=== PATIENT | male | born 1950 | race Caucasian/White ===

== ENCOUNTER 2019-04-10 20:50 | Observation (INO) | payer OTHER, SELFPAY ==
[2019-04-10] VITALS (20 sets, daily range): BP systolic 161–175; BP diastolic 88–118; PULSE 69–79; RESP 10–25; TEMP 36.8–37.3; O2SAT 96–99
--- NOTE | 2019-04-10 21:18 | DI.RAD_ITS ---
SYMPTOMS/DIAGNOSIS: PALPITATIONS CHEST: Frontal and lateral views. No priors. The heart size and pulmonary vasculature are within normal limits. There is prominent soft tissue in the right paratracheal region. This may be vascular but a superior mediastinal mass can not excluded. The lungs are clear. No effusions or pneumothoraces are identified. Degenerative changes are seen in the spine. IMPRESSION: 1. No acute pulmonary process. 2. Prominent soft tissue in the right paratracheal region. A CT scan of the chest may be considered for further evaluation.
--- NOTE | 2019-04-10 21:22 | ED.GENADUL_ITS ---
Discharge Plan Disposition Patient Disposition: [facility] INPATIENT Condition: Stable Discharge Details Chief Complaint: Chest Pain Clinical Impression: Heart palpitations Admit Date/Time: 04/10/19 22:30 Admit Provider: Jay Montana Attending Provider: Jay Montana Primary Care Provider: Poncho Porter ED Provider: Mac Blount Medical Decision Making 68-year-old male with a history of A. fib and flutter, status post ablation, with a history of coronary artery disease status post percutaneous stenting x1. Medications include Eliquis and Tikosyn. Today, the patient flew from his home in [place] to his home in [place]. He reports after getting on the plane at 10 AM he felt anxious as he does not like flying and felt fluttering in his chest. He took his medications while on the plane. Since that time he is felt a fluttering and discomfort similar 20s had previous episodes of atrial dysrhythmia. He arrives afebrile, well-appearing, mildly anxious and hypertensive. Chest x-ray without any acute findings. His laboratories are reassuring and age-adjusted d-dimer is negative. He has demonstrated single PVCs on the monitor. With his history of atrial dysrhythmia he may have had a mild dysrhythmia due to anxiety secondary to flying, that was extinguished with Tikosyn. I do feel he merits serial cardiac troponins with telemetry monitoring overnight. Lab Data Lab results reviewed: Yes I reviewed the patient's lab results. Laboratory Results - last 24 hr 04/10/19 04/10/19 04/10/19 21:05 21:05 21:15 WBC 8.73 RBC 4.49 L Hgb 15.3 Hct 45.6 MCV 101.6 H MCH 34.1 H MCHC 33.6 RDW 13.8 Plt Count 191 MPV 10.8 Immature Gran % 0.3 Neutrophils % 71.4 Lymphocytes % 14.8 Monocytes % 12.8 Eosinophils % 0.2 Basophils % 0.5 Absolute Neutrophils 6.23 Absolute Lymphocytes 1.29 Absolute Monocytes 1.12 H Absolute Eosinophils 0.02 Absolute Basophils 0.04 PT 10.3 INR 1.0 APTT 24.7 D-Dimer 609 H Sodium 141 Potassium 4.4 Chloride 103 Carbon Dioxide 26.7 Anion Gap 11.3 H BUN 23 H Creatinine 0.99 Estimated GFR/1.73 m2 >= 60.00 Glucose 126 H Calcium 9.7 Magnesium 1.8 Total Bilirubin 0.8 AST 84 H ALT 100 H Alkaline Phosphatase 89 Troponin I 0.04 NT-Pro-B Natriuret Pep Total Protein 8.4 H Albumin 4.0 TSH 04/10/19 04/10/19 04/10/19 21:15 21:15 21:18 WBC RBC Hgb Hct MCV MCH MCHC RDW Plt Count MPV Immature Gran % Neutrophils % Lymphocytes % Monocytes % Eosinophils % Basophils % Absolute Neutrophils Absolute Lymphocytes Absolute Monocytes Absolute Eosinophils Absolute Basophils PT INR APTT D-Dimer Sodium Cancelled Potassium Cancelled Chloride Cancelled Carbon Dioxide Cancelled Anion Gap Cancelled BUN Cancelled Creatinine Cancelled Estimated GFR/1.73 m2 Cancelled Glucose Cancelled Calcium Cancelled Magnesium Total Bilirubin Cancelled AST Cancelled ALT Cancelled Alkaline Phosphatase Cancelled Troponin I Cancelled NT-Pro-B Natriuret Pep 372 H Total Protein Cancelled Albumin Cancelled TSH 2.70 ECG Data Attestation: I personally reviewed and interpreted this ECG (s) as follows: Interpretation: Normal sinus rhythm with a rate of 74, the QRS is narrow, there is no ST segment elevation present. Left atrial enlargement HPI General Mode of arrival: ambulatory . Date/Time Provider Initiated Documentation: 04/10/19 20:57 . Limitations to Documentation: no limitations . Information obtained by: patient . History of Present Illness 68 year old M presents to the emergency department with the chief complaint of Palpitations, fluttering in chest, described as moderate and similar to prior episodes, Quality is described as constant, and is localized to the chest. Patient reports no radiation. Patient started experiencing this hour(s) and it has been constant. No relieving factors improve symptom(s), No exacerbating factors reported . Patient notes loss of appetite and other (Anxious). Patient did receive the following treatments prior to arrival, none Related Data Home Medications Medication Instructions Recorded Confirmed acetaminophen [Tylenol] PRN 04/10/19 apixaban [Eliquis] 5 mg PO BID 04/10/19 04/10/19 atorvastatin 40 mg PO QPM 04/10/19 04/10/19 dofetilide 500 mcg PO Q12H 04/10/19 04/10/19 glucosamine sulfate [Glucosamine] 3 PO DAILY 04/10/19 nitroglycerin 0.4 mg SUBLINGUAL Q5-15M PRN 04/10/19 04/10/19 Allergies Allergy/AdvReac Type Severity Reaction Status Date / Time No Known Allergies Allergy Unverified 04/10/19 21:19 General Stated Complaint: Chest Pain HU: 3 Review of Systems Review of Systems Reports history of A. fib and flutter status post ablation. Status post percutaneous stenting of coronary lesion. Lives in [facility]. Has a home in [facility]. No recent illness. Reports weight gain over the years time. 8 systems reviewed reviewed and otherwise negative [facility] Medical History Arthritis (Acute) BiPAP (biphasic positive airway pressure) dependence (Acute) Carpal tunnel syndrome on both sides (Acute) Sleep apnea (Acute) Coronary artery disease (Chronic) Surgical History Total knee replacement status (Acute) History of coronary artery stent placement (Chronic) Social History Smoking/Tobacco Use Status: Never Alcohol Intake: current Alcohol Intake frequency: a few times a week Substance use type: does not use Do you feel safe at home: Yes Do you feel safe in your relationship?: Yes Exam Narrative Exam Narrative: GEN: awake, alert, oriented 3. Pleasant, well groomed, interactive. HEAD: Normocephalic, atraumatic ENT: Mucous membranes moist, oropharynx unremarkable, External ear exam unrema rkable EYES: PERRL, EOMI NECK: Full ROM, no SILVINA, no menigismus CHEST/RESP: Nontender, clear to auscultation bilateral, no wheeze/rhonchi/rales CARDIOVASCULAR: RRR, no murmur, rub alcon. 2+ Rad pulse bilateral ABDOMEN: Soft, nontender, no mass. +Bowel sounds EXT: Full ROM, no edema, no rash Neuro: Grossly normal neurologic exam, conversant, interactive. Psych: Speech fluent, thoughts congruent, affect normal Course Vital Signs Temperature 36.8 C 04/10/19 21:05 Pulse 77 04/10/19 21:05 Respiratory Rate 16 04/10/19 21:05 Blood Pressure 162/98 H 04/10/19 21:05 Pulse Oximetry 99 04/10/19 21:05 Temperature 36.8 C 04/10/19 21:05 Temperature Source Skin 04/10/19 21:05 Pulse 77 04/10/19 21:05 Respiratory Rate 16 04/10/19 21:05 Respiratory Effort Non-Labored 04/10/19 21:08 Respiratory Depth Normal 04/10/19 21:08 Respiratory Pattern Normal 04/10/19 21:08 Blood Pressure 162/98 H 04/10/19 21:05 Pulse Oximetry 99 04/10/19 21:05 Pain Level 4 04/10/19 21:05
[2019-04-10] MEDS: LORazepam 2 MG/ML VIAL 0.5 MG IVP (21:30)
[2019-04-10] MEDS: MAGNESIUM SULFATE 1 GM/100 ML BAG IVPB (21:30)
[2019-04-10] MEDS: Normal Saline 1,000 ML 125 ML IV ×2 (21:33→23:45)
[2019-04-10 21:39] LABS: Abs Immature Grans 0.03 k/cumm (0.0-0.09); Absolute Basophil Count 0.04 k/cumm (0.0-0.2); Absolute Eosinophil Count 0.02 k/cumm (0.0-0.7); Absolute Lymphocyte Count 1.29 k/cumm (1.2-3.4); Absolute Monocyte Count 1.12 k/cumm (0.11-0.7); Absolute Neutrophil Count 6.23 k/cumm (1.2-6.7); Basophils % 0.5; Eosinophils % 0.2; HCT 45.6 % (40.0-50.0); HGB 15.3 g/dL (13.5-17.5); Immature Grans % 0.3; Lymphocytes % 14.8; Mean Corp. HGB Concentration 33.6 g/dL (32.0-36.0); Mean Corpuscular Hemoglobin 34.1 pg (27.0-33.0); Mean Corpuscular Volume 101.6 fL (80-95); Mean Platelet Volume 10.8 fL (8.0-11.0); Monocytes % 12.8; Neutrophils % 71.4; Platelet Count 191 x1000/uL (130-400); RBC 4.49 m/cumm (4.50-6.00); RBC Distribution Width 13.8 % (11.8-14.1); White Blood Cell Count 8.73 k/cumm (4.4-10.8)
[2019-04-10 21:46] LABS: PTT Activated 24.7 sec (21.0-31.4); Prothrombin Time 10.3 sec (9.3-11.0)
[2019-04-10 21:53] LABS: ALT 100 U/L (12-78); AST 84 U/L (15-37); Alkaline Phosphatase 89 U/L (46-116); Anion Gap 11.3 mmol/L (3-11); BUN 23 mg/dL (7-18); Bilirubin, Total 0.8 mg/dL (0.2-1.0); CO2 26.7 mmol/L (21.0-32.0); CREATININE 0.99 mg/dL (0.70-1.30); Calcium 9.7 mg/dL (8.5-10.1); Chloride 103 mmol/L (98-107); Glucose 126 mg/dL (70-100); Magnesium 1.8 mg/dL (1.8-2.4); Potassium 4.4 mmol/L (3.5-5.1); Sodium 141 mmol/L (136-145); Total Protein 8.4 g/dL (6.4-8.2); Troponin I 0.04 ng/mL (0.00-0.06)
[2019-04-10 21:57] LABS: NT-proBNP 372 pg/mL
[2019-04-10 22:02] LABS: D-Dimer 609 ng/mlFEU (<500)
--- NOTE | 2019-04-10 22:11 | DI.VRAD_ITS ---
EXAM: XR Chest, 2 Views EXAM DATE/TIME: 04/10/2019 9:52 PM CLINICAL HISTORY: 68 years old, male; Signs and symptoms; Other: Palpitations TECHNIQUE: Imaging protocol: XR of the chest, 2 views. COMPARISON: No relevant prior studies available. FINDINGS: Lungs: Unremarkable. No consolidation. Pleural space: Unremarkable. No pleural effusion. No pneumothorax. Heart/Mediastinum: Unremarkable. No cardiomegaly. Bones/joints: No acute findings. IMPRESSION: No acute findings. Dictated and Authenticated by: Amanda Rea MD. Ordering:AMINATA Watts MD
[2019-04-10] MEDS: Normal Saline Flush 10 ML SYR IVP (23:45)
[2019-04-11] VITALS (7 sets, daily range): BP systolic 151–168; BP diastolic 82–93; PULSE 55–143; RESP 18–20; TEMP 36.5–37.5; O2SAT 95–97
--- NOTE | 2019-04-11 00:57 | HPE_ITS ---
Date of service: 04/11/19 Time of Service: 00:56 Assessment and Plan (1) Palpitations: Current visit: Yes Status: Acute continue his Tikosyn and Eliquis; monitor heart rate and rhythm overnight and cycle troponin levels. If rhythm remains in NSR and no elevation of his troponin then he can be discharged to his son's home in [place] tomorrow w/ close follow up as an outpatient. he may need a Zio patch placed upon discharge for longer monitoring as an outpatient (2) Paroxysmal atrial fibrillation: Current visit: Yes Status: Acute no sign of recurrence. He is s/p ablation but remains on antiarrythmic med of Tikosyn. He reportedly had been switched in the past from Tikosyn to a miodarone for some unknown reason that he seemed to think had to do w/ sx of dizziness and falling down but then was switched back to Tikosyn d/t to LFT problems from the amiodarone. It is interesting that he currently has mild elevation of his LFT's. However this may reflect his alcohol intake. (3) Hyperlipidemia: Current visit: Yes Status: Acute continue his home dose of atorvastatin although it bears closer monitoring of his LFT's in outpatient follow up Qualifiers: Hyperlipidemia type: unspecified Qualified Code(s): E78.5 - Hyperlipidemia, unspecified (4) Coronary artery disease: Current visit: Yes Status: Chronic no ischemic ST-T changes and no elevation of his troponin levels. 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 Qualifiers: Coronary Disease-Associated Artery/Lesion type: [place] artery [place] vs. transplanted heart: [place] heart Associated angina: without angina Qualified Code(s): I25.10 - Atherosclerotic heart disease of [place] coronary artery without angina pectoris History of Present Illness Chief Complaint: palpitations Narrative: 68-year-old male with a pa st medical history significant for paroxysmal atrial fibrillation who is now status post ablation from 4 years ago along with a history of single-vessel coronary artery stent of his LAD. Patient normally lives in [facility] on but is here in [facility] visiting his son and [id number] who run [employer]. Patient states he had a checkup with his small products i assembler a week ago and his EKG showed he was in normal sinus rhythm. He has had no exertional chest pain or exertional dyspnea and no recent palpitations. However today shortly after takeoff of his flight around 8:15 AM he began having symptoms of feeling shaky and a fluttering sensation in his chest along with some shortness of breath and belching. He took his Tikosyn around 9:30 AM along with his Eliquis. Symptoms continued throughout the day and he changed planes and [place] in [facility] and flew onto [facility] where his son picked him up and brought him back to [place]. Because his symptoms continued he presented the emergency room at [facility]. Work-up was performed by Dr. Mac Blount including routine labs and EKG and chest x-ray. EKG demonstrated normal sinus rhythm with evidence of left atrial enlargement and left axis deviation. There is no acute ischemic ST or T wave changes and no arrhythmias. Dr. Blount reported that the patient had some occasional PVCs on telemetry but no runs of ventricular tachycardia. Chest x-ray showed no acute findings. Laboratory work-up included d-dimer that was within the age specific range at 609. Normal pro time and PTT. Chemistry panel showed no electrolyte abnormalities. LFTs were mildly elevated with an AST of 84 and an ALT of 100. proBNP was slightly elevated 372. CBC showed a macrocytosis but no anemia and no leukocytosis. TSH was normal at 2.7. Patient is being admitted on observation overnight with further troponin levels and monitoring of his heart rhythm. So far his first 2 troponins have been within normal limits at 0.04 and 0.06. Currently he is asymptomatic of any palpitations or chest pain. He does admit that while he was having the palpitations on the plane he was having some slight shortness of breath. He notes that he gets anxious whenever he flies. Review of Systems Review of Systems All systems reviewed & are unremarkable except as noted in HPI and below PFSH Medical History Arthritis (Acute) BiPAP (biphasic positive airway pressure) dependence (Acute) Carpal tunnel syndrome on both sides (Acute) Sleep apnea (Acute) Coronary artery disease (Chronic) Surgical History Total knee replacement status (Acute) History of coronary artery stent placement (Chronic) Social History Smoking/Tobacco Use Status: Never Alcohol Intake: current Alcohol Intake frequency: a few times a week Alcohol type: hard liquor Substance use type: does not use Do you feel safe at home: Yes Do you feel safe in your relationship?: Yes Meds Home Medications Medication Instructions Recorded Confirmed Type acetaminophen [Tylenol] PRN 04/10/19 History apixaban [Eliquis] 5 mg PO BID 04/10/19 04/10/19 History atorvastatin 40 mg PO QPM 04/10/19 04/10/19 History dofetilide 500 mcg PO Q12H 04/10/19 04/10/19 History glucosamine sulfate [Glucosamine] 3 PO DAILY 04/10/19 History nitroglycerin 0.4 mg SUBLINGUAL Q5-15M PRN 04/10/19 04/10/19 History Allergies Allergy/AdvReac Type Severity Reaction Status Date / Time No Known Allergies Allergy Unverified 04/10/19 21:19 Exam Const General: cooperative and anxious Nutritional Appearance: obese Orientation: alert, awake and oriented x3 HENMT Head: normal to inspection, no palpable skull fracture, normocephalic and atraumatic Ears: hearing grossly normal bilaterally General nose exam: external nose normal Face and sinus: normal facial exam Eyes General: appearance normal, both eyes and all related structures Alignment and Position: alignment normal Periorbital: periorbital findings normal Eyelids: eyelids normal Conjunctivae: conjunctivae normal Sclera: sclerae normal Cornea: corneas normal Pupils: PERRL EOM: EOM intact bilaterally Neck Neck: normal visual inspection, full ROM, no lymphadenopathy, trachea midline, supple and no JVD Chest Chest: normal inspection of the chest Resp Effort & Inspection: normal respiratory effort and able to speak in complete sentences Auscultation: clear to auscultation bilaterally Cardio Jugular venous pressure: no JVD Palpation: normal PMI Rate: regular rate Rhythm: regular rhythm Heart Sounds: S1 normal, S2 normal and normal, physiologic split S2 Pulses: normal peripheral pulses GI Inspection: obesity Palpation: soft and hernia umbilical Auscultation: normal bowel sounds Skin General skin exam: no rashes or lesions noted, elasticity normal, turgor normal and scars bilateral anterior knee surgical and well-healed Neuro General: alert, awake and oriented x3 Cognition: normal cognition Speech: speech normal Motor: muscle tone normal throughout, strength 5/5 throughout and no movement abnormalities noted Sensory Exam: no sensory deficits noted Extrem General: normal to inspection, full ROM, normal capillary refill, no joint enlargement, no clubbing, cyanosis or edema, no pedal edema and no calf tende rness Psych Appearance: grossly normal and well kempt Speech and Movement: speech and movement normal Mood: anxious mood Affect: anxious affect Attitude: cooperative Thought Process: normal Thought Content: normal Insight: insight good Judgment: judgment good Results Labs : 04/10/19 21:05 04/10/19 21:18 Laboratory Results - last 24 hr 04/10/19 04/10/19 04/10/19 21:05 21:05 21:15 WBC 8.73 RBC 4.49 L Hgb 15.3 Hct 45.6 MCV 101.6 H MCH 34.1 H MCHC 33.6 RDW 13.8 Plt Count 191 MPV 10.8 Immature Gran % 0.3 Neutrophils % 71.4 Lymphocytes % 14.8 Monocytes % 12.8 Eosinophils % 0.2 Basophils % 0.5 Absolute Neutrophils 6.23 Absolute Lymphocytes 1.29 Absolute Monocytes 1.12 H Absolute Eosinophils 0.02 Absolute Basophils 0.04 PT 10.3 INR 1.0 APTT 24.7 D-Dimer 609 H Sodium 141 Potassium 4.4 Chloride 103 Carbon Dioxide 26.7 Anion Gap 11.3 H BUN 23 H Creatinine 0.99 Estimated GFR/1.73 m2 >= 60.00 Glucose 126 H Calcium 9.7 Magnesium 1.8 Total Bilirubin 0.8 AST 84 H ALT 100 H Alkaline Phosphatase 89 Troponin I 0.04 NT-Pro-B Natriuret Pep Total Protein 8.4 H Albumin 4.0 TSH 04/10/19 04/10/19 04/10/19 21:15 21:15 21:18 WBC RBC Hgb Hct MCV MCH MCHC RDW Plt Count MPV Immature Gran % Neutrophils % Lymphocytes % Monocytes % Eosinophils % Basophils % Absolute Neutrophils Absolute Lymphocytes Absolute Monocytes Absolute Eosinophils Absolute Basophils PT INR APTT D-Dimer Sodium Cancelled Potassium Cancelled Chloride Cancelled Carbon Dioxide Cancelled Anion Gap Cancelled BUN Cancelled Creatinine Cancelled Estimated GFR/1.73 m2 Cancelled Glucose Cancelled Calcium Cancelled Magnesium Total Bilirubin Cancelled AST Cancelled ALT Cancelled Alkaline Phosphatase Cancelled Troponin I Cancelled NT-Pro-B Natriuret Pep 372 H Total Protein Cancelled Albumin Cancelled TSH 2.70 Last Vital Signs Temp 37.3 C 04/10/19 23:11 Pulse 75 04/10/19 23:55 Resp 19 04/10/19 23:11 BP 167/95 H 04/10/19 23:11 Pulse Ox 98 04/10/19 23:11
[2019-04-11 01:28] LABS: Troponin I 0.06 ng/mL (0.00-0.06)
[2019-04-11] MEDS: Atorvastatin 40 MG TAB PO (02:07)
[2019-04-11] MEDS: Dofetilide 250 MCG CAP 500 MCG PO ×2 (02:07→09:51)
[2019-04-11] MEDS: Apixaban 5 MG TAB PO ×2 (02:07→09:51)
[2019-04-11 06:06] LABS: Troponin I 0.06 ng/mL (0.00-0.06)
--- NOTE | 2019-04-11 11:17 | W.PM.DS.N ---
Date of service: 04/11/19 Time of Service: 11:00 DS: Diagnosis Discharge Diagnosis (1) Palpitations: Status: Acute (2) Paroxysmal atrial fibrillation: Status: Acute (3) Hyperlipidemia: Status: Acute (4) Coronary artery disease: Status: Chronic Discharge Plan Disposition Patient Disposition: HOME Condition: Stable Discharge Details Reason For Visit: PALPITATIONS Admit Date/Time: 04/10/19 22:30 Admit Provider: Jay Montana Attending Provider: Jay Montana Primary Care Provider: Poncho Porter [facility] Course Hospital Course: 68-year-old male with a past medical history significant for paroxysmal atrial fibrillation who is now status post ablation from 4 years ago along with a history of single-vessel coronary artery stent of his LAD. Patient normally lives in [facility] on but is here in [facility] visiting his son and [id number] who run [employer]. 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 He has had no exertional chest pain or exertional dyspnea and no recent palpitations. However today shortly after takeoff of his flight around 8:15 AM he began having symptoms of feeling shaky and a fluttering sensation in his chest along with some shortness of breath and belching. He took his Tikosyn around 9:30 AM along with his Eliquis. Symptoms continued throughout the day and he changed planes and [place] in [facility] and flew onto [facility] where his son picked him up and brought him back to [place]. Because his symptoms continued he presented the emergency room at [facility]. Work-up was performed by Dr. Mac Blount including routine labs and EKG and chest x-ray. EKG demonstrated normal sinus rhythm with evidence of left atrial enlargement and left axis deviation. There is no acute ischemic ST or T wave changes and no arrhythmias. Dr. Blount reported that the patient had some occasional PVCs on telemetry but no runs of ventricular tachycardia. Chest x-ray showed no acute findings. Laboratory work-up included d-dimer that was within the age specific range at 609. Normal pro time and PTT. Chemistry panel showed no electrolyte abnormalities. LFTs were mildly elevated with an AST of 84 and an ALT of 100. proBNP was slightly elevated 372. CBC showed a macrocytosis but no anemia and no leukocytosis. TSH was normal at 2.7. Patient is being admitted on observation overnight with further troponin levels and monitoring of his heart rhythm. So far his first 2 troponins have been within normal limits at 0.04 and 0.06. Currently he is asymptomatic of any palpitations or chest pain. He does admit that while he was having the palpitations on the plane he was having some slight shortness of breath. He notes that he gets anxious whenever he flies. overnight he remained in sinus rhythm, with no afib or vtach. he had a brief period of SVT while voiding but this subsided and he was asymptomatic at the time. His serial troponins remained negative. His ast 84 and alt 100 with alk phos 89 and total bili 0.8. He reports increased intake of tylenol d/t arthritic pain. he was advised to avoid tylenol, hold his statin and abstain from ETOH and to follow up with pcp when he returned home. He remained symptom free and hemodynamically stable and will be discharged to home. he will be returning on April 20 and should follow up caprice with cardiology and pcp when he returns or closest ED for new or worsening symptoms Home Meds and New Rx's Prescriptions: Continued nitroglycerin 0.4 mg Tablet, Sublingual 0.4 mg SUBLINGUAL Q5-15M PRNRF: 0 dofetilide 500 mcg Capsule 500 mcg PO Q12H RF: 0 Eliquis 5 mg Tablet 5 mg PO BID RF: 0 Discontinued glucosamine sulfate [Glucosamine] 500 mg Tablet 3 PO DAILY RF: 0 atorvastatin 40 mg Tablet 40 mg PO QPM RF: 0 acetaminophen [Tylenol] 325 mg Tablet PRNRF: 0 Discharge Instructions Instructions: Palpitations (DC) Additional Instructions: call primary care provider and cardiologists for follow up appointments as soon as you return. present to you closest ED for new or worsening symptoms. your liver enzymes AST 84 (normal 15-37) and ALT 100 (normal 12-78) were elevated. you will need follow up with primary care regarding this. You have been instructed to avoid alcohol, tylenol and hold your atorvastatin until instructed by your doctor. Stand Alone Forms: Nursing Discharge Form Referrals: Poncho Porter DO [Primary Care Provider] - (Please call and make an appointment with your PCP on Friday for a follow-up appointment) Activity:: Activity as Tolerated Equipment/Supplies:: No Equipment Needed Diet:: As Tolerated Discharge Orders Discharge Orders: Discharge Order (Routine); Ordered 04/11/19 Ordered By: Allegra Ragland Discharge Data Discharge Date/Time-TO BE ENTERED AT DEPARTURE: 04/11/19 13:38 Exam Const General: cooperative, healthy appearing, comfortable and anxious Nutritional Appearance: obese Orientation: alert, awake and oriented x3 HENMT Head: normal to inspection, normocephalic and atraumatic Chest Chest: normal inspection of the chest Resp Effort & Inspection: normal respiratory effort Auscultation: clear to auscultation bilaterally Cardio Jugular venous pressure: no JVD Rate: regular rate Rhythm: regular rhythm Heart Sounds: no murmurs GI Inspection: normal to inspection and obesity Palpation: soft and nontender Auscultation: normal bowel sounds Back/Spine/Pelvis Thoracic/Lumbar Spine: thoracic and lumbar spine normal to inspection Skin General skin exam: no rashes or lesions noted Neuro General: alert, awake and oriented x3 Cognition: normal cognition Speech: speech normal Gait: normal gait Extrem General: normal to inspection and full ROM Psych Appearance: grossly normal Speech and Movement: speech and movement normal Mood: anxious mood Affect: blunted Attitude: cooperative DS: Data Vitals/I&O Vitals and I&O: Vital Signs Temperature 37.2 C 04/11/19 07:35 Temperature Source Tympanic 04/11/19 07:35 Pulse 72 04/11/19 09:57 Pulse Rhythm Regular 04/11/19 08:38 Pulse 72 04/10/19 22:40 Respiratory Rate 20 04/11/19 07:35 Respiratory Effort Short of Breath 04/11/19 08:38 Respiratory Depth Normal 04/11/19 08:38 Respiratory Pattern Normal 04/11/19 08:38 Blood Pressure 155/88 H 04/11/19 09:57 Blood Pressure Mean 109 04/10/19 22:30 Pulse Oximetry 97 04/11/19 09:57 Oxygen Delivery Method Room Air 04/11/19 09:57 Oxygen Flow Rate 0 04/11/19 09:57 Pain Level 0 04/11/19 09:57 Comment 04/11/19 07:35 Intake & Output 04/10/19 04/10/19 04/11/19 11:59 23:59 11:59 Intake Total 375 / 375 1179.167 / 1179.167 Balance 375 / 375 1179.167 / 1179.167 Weight 113 kg Intake: IV 375 / 375 279.167 / 279.167 Oral 900 / 900 Labs on day of discharge: Labs from last 24 hours 04/11/19 04/11/19 04/10/19 05:35 01:09 21:18 WBC RBC Hgb Hct MCV MCH MCHC RDW Plt Count MPV Immature Gran % Neutrophils % Lymphocytes % Monocytes % Eosinophils % Basophils % Absolute Neutrophils Absolute Lymphocytes Absolute Monocytes Absolute Eosinophils Absolute Basophils PT INR APTT D-Dimer Sodium Cancelled Potassium Cancelled Chloride Cancelled Carbon Dioxide Cancelled Anion Gap Cancelled BUN Cancelled Creatinine Cancelled Estimated GFR/1.73 m2 Cancelled Glucose Cancelled Calcium Cancelled Magnesium Total Bilirubin Cancelled AST Cancelled ALT Cancelled Alkaline Phosphatase Cancelled Troponin I 0.06 0.06 Cancelled NT-Pro-B Natriuret Pep Total Protein Cancelled Albumin Cancelled TSH 04/10/19 04/10/19 04/10/19 21:15 21:15 21:15 WBC RBC Hgb Hct MCV MCH MCHC RDW Plt Count MPV Immature Gran % Neutrophils % Lymphocytes % Monocytes % Eosinophils % Basophils % Absolute Neutrophils Absolute Lymphocytes Absolute Monocytes Absolute Eosinophils Absolute Basophils PT INR APTT D-Dimer Sodium 141 Potassium 4.4 Chloride 103 Carbon Dioxide 26.7 Anion Gap 11.3 H BUN 23 H Creatinine 0.99 Estimated GFR/1.73 m2 >= 60.00 Glucose 126 H Calcium 9.7 Magnesium 1.8 Total Bilirubin 0.8 AST 84 H ALT 100 H Alkaline Phosphatase 89 Troponin I 0.04 NT-Pro-B Natriuret Pep 372 H Total Protein 8.4 H Albumin 4.0 TSH 2.70 04/10/19 04/10/19 21:05 21:05 WBC 8.73 RBC 4.49 L Hgb 15.3 Hct 45.6 MCV 101.6 H MCH 34.1 H MCHC 33.6 RDW 13.8 Plt Count 191 MPV 10.8 Immature Gran % 0.3 Neutrophils % 71.4 Lymphocytes % 14.8 Monocytes % 12.8 Eosinophils % 0.2 Basophils % 0.5 Absolute Neutrophils 6.23 Absolute Lymphocytes 1.29 Absolute Monocytes 1.12 H Absolute Eosinophils 0.02 Absolute Basophils 0.04 PT 10.3 INR 1.0 APTT 24.7 D-Dimer 609 H Sodium Potassium Chloride Carbon Dioxide Anion Gap BUN Creatinine Estimated GFR/1.73 m2 Glucose Calcium Magnesium Total Bilirubin AST ALT Alkaline Phosphatase Troponin I NT-Pro-B Natriuret Pep Total Protein Albumin TSH PFSH Medical History Arthritis (Acute) BiPAP (biphasic positive airway pressure) dependence (Acute) Carpal tunnel syndrome on both sides (Acute) Sleep apnea (Acute) Coronary artery disease (Chronic) Surgical History Total knee replacement status (Acute) History of coronary artery stent placement (Chronic) Social History Smoking/Tobacco Use Status: Never Alcohol Intake: current Alcohol Intake frequency: a few times a week Alcohol type: hard liquor Substance use type: does not use Do you feel safe at home: Yes Do you feel safe in your relationship?: Yes
--- NOTE | 2019-04-11 11:22 | DSE_ITS ---
Date of service: 04/11/19 Time of Service: 11:00 DS: Diagnosis Discharge Diagnosis (1) Palpitations: Status: Acute (2) Paroxysmal atrial fibrillation: Status: Acute (3) Hyperlipidemia: Status: Acute (4) Coronary artery disease: Status: Chronic Discharge Plan Disposition Patient Disposition: HOME Condition: Stable Discharge Details Reason For Visit: PALPITATIONS Admit Date/Time: 04/10/19 22:30 Admit Provider: Jay Montana Attending Provider: Jay Montana Primary Care Provider: Poncho Porter [facility] Course Hospital Course: 68-year-old male with a past medical history significant for paroxysmal atrial fibrillation who is now status post ablation from 4 years ago along with a history of single-vessel coronary artery stent of his LAD. Patient normally lives in [facility] on but is here in [facility] visiting his son and [id number] who run [employer]. 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 He has had no exertional chest pain or exertional dyspnea and no recent palpitations. However today shortly after takeoff of his flight around 8:15 AM he began having symptoms of feeling shaky and a fluttering sensation in his chest along with some shortness of breath and belching. He took his Tikosyn around 9:30 AM along with his Eliquis. Symptoms continued throughout the day and he changed planes and [place] in [facility] and flew onto [facility] where his son picked him up and brought him back to [place]. Because his symptoms continued he presented the emergency room at [facility]. Work- up was performed by Dr. Mac Blount including routine labs and EKG and chest x-ray. EKG demonstrated normal sinus rhythm with evidence of left atrial enlargement and left axis deviation. There is no acute ischemic ST or T wave changes and no arrhythmias. Dr. Blount reported that the patient had some occasional PVCs on telemetry but no runs of ventricular tachycardia. Chest x- ray showed no acute findings. Laboratory work-up included d-dimer that was within the age specific range at 609. Normal pro time and PTT. Chemistry panel showed no electrolyte abnormalities. LFTs were mildly elevated with an AST of 84 and an ALT of 100. proBNP was slightly elevated 372. CBC showed a macrocytosis but no anemia and no leukocytosis. TSH was normal at 2.7. Patient is being admitted on observation overnight with further troponin levels and monitoring of his heart rhythm. So far his first 2 troponins have been within normal limits at 0.04 and 0.06. Currently he is asymptomatic of any palpitations or chest pain. He does admit that while he was having the palpitations on the plane he was having some slight shortness of breath. He notes that he gets anxious whenever he flies. overnight he remained in sinus rhythm, with no afib or vtach. he had a brief period of SVT while voiding but this subsided and he was asymptomatic at the time. His serial troponins remained negative. His ast 84 and alt 100 with alk phos 89 and total bili 0.8. He reports increased intake of tylenol d/t arthritic pain. he was advised to avoid tylenol, hold his statin and abstain from ETOH and to follow up with pcp when he returned home. He remained symptom free and hemodynamically stable and will be discharged to home. he will be returning on April 20 and should follow up caprice with cardiology and pcp when he returns or closest ED for new or worsening symptoms Home Meds and New Rx's Prescriptions: Continued nitroglycerin 0.4 mg Tablet, Sublingual 0.4 mg SUBLINGUAL Q5-15M PRNRF: 0 dofetilide 500 mcg Capsule 500 mcg PO Q12H RF: 0 Eliquis 5 mg Tablet 5 mg PO BID RF: 0 Discontinued glucosamine sulfate [Glucosamine] 500 mg Tablet 3 PO DAILY RF: 0 atorvastatin 40 mg Tablet 40 mg PO QPM RF: 0 acetaminophen [Tylenol] 325 mg Tablet PRNRF: 0 Discharge Instructions Instructions: Palpitations (DC) Additional Instructions: call primary care provider and cardiologists for follow up appointments as soon as you return. present to you closest ED for new or worsening symptoms. your liver enzymes AST 84 (normal 15-37) and ALT 100 (normal 12-78) were elevated. you will need follow up with primary care regarding this. You have been instructed to avoid alcohol, tylenol and hold your atorvastatin until instructed by your doctor. Stand Alone Forms: Nursing Discharge Form Referrals: Poncho Porter DO [Primary Care Provider] - (Please call and make an appointment with your PCP on Friday for a follow-up appointment) Activity:: Activity as Tolerated Equipment/Supplies:: No Equipment Needed Diet:: As Tolerated Discharge Orders Discharge Orders: Discharge Order (Routine); Ordered 04/11/19 Ordered By: Allegra Ragland Discharge Data Discharge Date/Time-TO BE ENTERED AT DEPARTURE: 04/11/19 13:38 Exam Const General: cooperative, healthy appearing, comfortable and anxious Nutritional Appearance: obese Orientation: alert, awake and oriented x3 HENMT Head: normal to inspection, normocephalic and atraumatic Chest Chest: normal inspection of the chest Resp Effort & Inspection: normal respiratory effort Auscultation: clear to auscultation bilaterally Cardio Jugular venous pressure: no JVD Rate: regular rate Rhythm: regular rhythm Heart Sounds: no murmurs GI Inspection: normal to inspection and obesity Palpation: soft and nontender Auscultation: normal bowel sounds Back/Spine/Pelvis Thoracic/Lumbar Spine: thoracic and lumbar spine normal to inspection Skin General skin exam: no rashes or lesions noted Neuro General: alert, awake and oriented x3 Cognition: normal cognition Speech: speech normal Gait: normal gait Extrem General: normal to inspection and full ROM Psych Appearance: grossly normal Speech and Movement: speech and movement normal Mood: anxious mood Affect: blunted Attitude: cooperative DS: Data Vitals/I&O Vitals and I&O: Vital Signs Temperature 37.2 C 04/11/19 07:35 Temperature Source Tympanic 04/11/19 07:35 Pulse 72 04/11/19 09:57 Pulse Rhythm Regular 04/11/19 08:38 Pulse 72 04/10/19 22:40 Respiratory Rate 20 04/11/19 07:35 Respiratory Effort Short of Breath 04/11/19 08:38 Respiratory Depth Normal 04/11/19 08:38 Respiratory Pattern Normal 04/11/19 08:38 Blood Pressure 155/88 H 04/11/19 09:57 Blood Pressure Mean 109 04/10/19 22:30 Pulse Oximetry 97 04/11/19 09:57 Oxygen Delivery Method Room Air 04/11/19 09:57 Oxygen Flow Rate 0 04/11/19 09:57 Pain Level 0 04/11/19 09:57 Comment 04/11/19 07:35 Intake & Output 04/10/19 04/10/19 04/11/19 11:59 23:59 11:59 Intake Total 375 / 375 1179.167 / 1179.167 Balance 375 / 375 1179.167 / 1179.167 Weight 113 kg Intake: IV 375 / 375 279.167 / 279.167 Oral 900 / 900 Labs on day of discharge: Labs from last 24 hours 04/11/19 04/11/19 04/10/19 05:35 01:09 21:18 WBC RBC Hgb Hct MCV MCH MCHC RDW Plt Count MPV Immature Gran % Neutrophils % Lymphocytes % Monocytes % Eosinophils % Basophils % Absolute Neutrophils Absolute Lymphocytes Absolute Monocytes Absolute Eosinophils Absolute Basophils PT INR APTT D-Dimer Sodium Cancelled Potassium Cancelled Chloride Cancelled Carbon Dioxide Cancelled Anion Gap Cancelled BUN Cancelled Creatinine Cancelled Estimated GFR/1.73 m2 Cancelled Glucose Cancelled Calcium Cancelled Magnesium Total Bilirubin Cancelled AST Cancelled ALT Cancelled Alkaline Phosphatase Cancelled Troponin I 0.06 0.06 Cancelled NT-Pro-B Natriuret Pep Total Protein Cancelled Albumin Cancelled TSH 04/10/19 04/10/19 04/10/19 21:15 21:15 21:15 WBC RBC Hgb Hct MCV MCH MCHC RDW Plt Count MPV Immature Gran % Neutrophils % Lymphocytes % Monocytes % Eosinophils % Basophils % Absolute Neutrophils Absolute Lymphocytes Absolute Monocytes Absolute Eosinophils Absolute Basophils PT INR APTT D-Dimer Sodium 141 Potassium 4.4 Chloride 103 Carbon Dioxide 26.7 Anion Gap 11.3 H BUN 23 H Creatinine 0.99 Estimated GFR/1.73 m2 >= 60.00 Glucose 126 H Calcium 9.7 Magnesium 1.8 Total Bilirubin 0.8 AST 84 H ALT 100 H Alkaline Phosphatase 89 Troponin I 0.04 NT-Pro-B Natriuret Pep 372 H Total Protein 8.4 H Albumin 4.0 TSH 2.70 04/10/19 04/10/19 21:05 21:05 WBC 8.73 RBC 4.49 L Hgb 15.3 Hct 45.6 MCV 101.6 H MCH 34.1 H MCHC 33.6 RDW 13.8 Plt Count 191 MPV 10.8 Immature Gran % 0.3 Neutrophils % 71.4 Lymphocytes % 14.8 Monocytes % 12.8 Eosinophils % 0.2 Basophils % 0.5 Absolute Neutrophils 6.23 Absolute Lymphocytes 1.29 Absolute Monocytes 1.12 H Absolute Eosinophils 0.02 Absolute Basophils 0.04 PT 10.3 INR 1.0 APTT 24.7 D-Dimer 609 H Sodium Potassium Chloride Carbon Dioxide Anion Gap BUN Creatinine Estimated GFR/1.73 m2 Glucose Calcium Magnesium Total Bilirubin AST ALT Alkaline Phosphatase Troponin I NT-Pro-B Natriuret Pep Total Protein Albumin TSH PFSH Medical History Arthritis (Acute) BiPAP (biphasic positive airway pressure) dependence (Acute) Carpal tunnel syndrome on both sides (Acute) Sleep apnea (Acute) Coronary artery disease (Chronic) Surgical History Total knee replacement status (Acute) History of coronary artery stent placement (Chronic) Social History Smoking/Tobacco Use Status: Never Alcohol Intake: current Alcohol Intake frequency: a few times a week Alcohol type: hard liquor Substance use type: does not use Do you feel safe at home: Yes Do you feel safe in your relationship?: Yes
== END 2019-04-11 13:38 | disposition home or self-care (01) ==
LOC: ER 22:57 → MS 23:56
PROVIDERS: Admitting Provider Internal Medicine; Emergency Provider Emergency Medicine; Visit Provider Internal Medicine
DX: R00.2 Palpitations (principal); I48.0 Paroxysmal atrial fibrillation; R06.02 Shortness of breath; R14.2 Eructation; R74.8 Abnormal levels of other serum enzymes; G47.33 Obstructive sleep apnea (adult) (pediatric); I25.10 Atherosclerotic heart disease of native coronary artery without angina pectoris; E78.5 Hyperlipidemia, unspecified; Z79.01 Long term (current) use of anticoagulants; Z95.5 Presence of coronary angioplasty implant and graft
CPT/HCPCS: 36415; 80053; 93005; 96361; 96365; 96375; 99217; 99220; 99285; 71046; 83735; 83880; 84443; 84484; 85025; 85379; 85610; 85730; 93010; 99236; G0378; J2060; J3475

== ENCOUNTER 2019-04-17 12:55 | Emergency (ER) | payer OTHER, SELFPAY ==
[2019-04-17 13:02] VITALS: BP 157/78; PULSE 59; RESP 16; TEMP 36.7; O2SAT 98
[2019-04-17] MEDS: diazePAM 5 MG TAB PO (13:30)
[2019-04-17] MEDS: Lidocaine 5% Patch 1 PATCH TP (13:30)
--- NOTE | 2019-04-17 14:24 | W.ED.GENAD ---
Discharge Plan Disposition Patient Disposition: HOME Condition: Improving Discharge Details Chief Complaint: Nk/Back Pain Clinical Impression: Left torticollis Primary Care Provider: Latosha,Local ED Provider: Tyron Dejesus Home Meds and New Rx's Prescriptions: Continued nitroglycerin 0.4 mg Tablet, Sublingual 0.4 mg SUBLINGUAL Q5-15M PRNRF: 0 dofetilide 500 mcg Capsule 500 mcg PO Q12H RF: 0 Eliquis 5 mg Tablet 5 mg PO BID RF: 0 No Action tramadol 50 mg tablet 50 mg PO TID PRN (Reason: pain) Qty: 20 RF: 0 cyclobenzaprine 10 mg tablet 10 mg PO TID PRN (Reason: muscle spasm) Qty: 20 RF: 0 lidocaine 5 % adhesive patch,medicated 2 patch TP DAILY Qty: 30 RF: 0 diazepam [Valium] 5 mg tablet 5 mg PO Q8H PRN (Reason: muscle spasm) Qty: 4 RF: 0 Discharge Instructions Instructions: Spasmodic Torticollis (ED) Additional Instructions: Please take medication as prescribed and return to the emergency department for any new or significant worsening of symptoms. You may also use [id number] lidocaine patches as directed on packaging or capsaicin cream. Please use caution while on muscle relaxers as they can cause significant sedation and refrain from any alcohol while using these medications. Follow-up with your primary care provider as needed when you return home. Referrals: Primary Care Provider [Outside] Discharge Data Discharge Date/Time-TO BE ENTERED AT DEPARTURE: 04/17/19 14:35 Medical Decision Making Patient states that yesterday he was unpacking boxes and moving shelving when he started noticing some muscular pain on the left side of his neck. As the evening went on this pain worsened causing some radiation of the pain further up into the neck and down into his shoulder. When he awoke this morning he noted he could not turn his head side to side as much and when he did this it caused significant increase in pain.. Patient denies any neurological symptoms, chest pain shortness of breath or difficulty swallowing/sore throat. Physical exam shows normal cardiac sounds, normal respiratory exam, no carotid bruits, no tenderness to palpation of the anterior surface of the neck or vertebrae, patient does have soft tissue muscular spasm and tension to the left trapezius with radiation up into the neck and base of skull. Physical exam is otherwise unremarkable, no neurological deficits are noted. Feel this is more spasmodic torticollis given that it was exacerbated by activity and no other findings on exam. Patient given p.o. diazepam. Patient reassessed and started noting improvement of symptoms after approximately 40 minutes. Return precautions were discussed. Doubt carotid dissection, any cervical spinal abnormality. Patient was prescribed limited supply of diazepam along with Flexeril to use as needed. After discussion of diagnosis and plan of care patient has no further needs, questions, or concerns and states clear understanding to return to the emergency department for any worsening symptoms. HPI General Mode of arrival: ambulatory. Date/Time Provider Initiated Documentation: 04/17/19 12:55. Limitations to Documentation: no limitations. Information obtained by: patient and RN notes reviewed. History of Present Illness 68 year old M presents to the emergency department with the chief complaint of Neck pain, described as moderate, with intensity rated at 8. Quality is described as aching and sharp, and is localized to the neck. Patient extremity (left shoulder). Patient started experiencing this day(s) (1) and it has been constant. No relieving factors improve symptom(s), Movement worsens symptoms . Patient notes no other symptoms.. Related Data Home Medications Medication Instructions Recorded Confirmed Eliquis 5 mg PO BID 04/10/19 04/18/19 dofetilide 500 mcg PO Q12H 04/10/19 04/18/19 nitroglycerin 0.4 mg SUBLINGUAL Q5-15M PRN 04/10/19 04/18/19 cyclobenzaprine 10 mg PO TID PRN #20 tab 04/19/19 diazepam [Valium] 5 mg PO Q8H PRN #4 tab 04/19/19 lidocaine 2 patch TP DAILY #30 each 04/19/19 tramadol 50 mg PO TID PRN #20 tab 04/19/19 Previous Rx's Medication Instructions Recorded cyclobenzaprine 10 mg PO TID PRN #20 tab 04/19/19 diazepam [Valium] 5 mg PO Q8H PRN #4 tab 04/19/19 lidocaine 2 patch TP DAILY #30 each 04/19/19 tramadol 50 mg PO TID PRN #20 tab 04/19/19 Allergies Allergy/AdvReac Type Severity Reaction Status Date / Time No Known Allergies Allergy Unverified 04/18/19 22:57 General Stated Complaint: Nk/Back Pain HU: 4 Review of Systems Constitutional Denies chills and Denies fever(s) ENT Reports neck pain Cardiovascular Denies chest pain and Denies dyspnea on exertion Respiratory Denies cough and Denies dyspnea on exertion Gastrointestinal Denies nausea Musculoskeletal Reports as per HPI, Denies back pain, Reports neck pain, Denies numbness, Reports stiffness (Left side neck ) and Denies tingling Neurologic Denies numbness, Denies sensory deficit and Denies tingling [facility] Social History Smoking/Tobacco Use Status: Never Alcohol Intake: current Alcohol Intake frequency: a few times a week Alcohol type: hard liquor Substance use type: does not use Do you feel safe at home: Yes Do you feel safe in your relationship?: Yes Exam Const General: cooperative and no acute distress Orientation: alert, awake and oriented x3 Neck Neck: normal visual inspection, full ROM and no meningeal signs Resp Effort & Inspection: normal respiratory effort Auscultation: clear to auscultation bilaterally Cardio Rate: regular rate Rhythm: regular rhythm Heart Sounds: S1 normal and S2 normal Bruits: no carotid bruits Pulses: radial pulses present GI Palpation: no hepatosplenomegaly, no aortic enlargement, no masses and no pulsatile masses Back/Spine/Pelvis Cervical Spine: cervical muscular tenderness (Left trapezius), cervical spasm (Left trapezius), cervical spinal tenderness (Mild but mostly soft tissue), No step off deformity and cervical ROM abnormal (Significant reduction rotation to left) Neuro General: alert, awake, oriented x3, gait normal, moves all extremities, no focal motor deficits, CN's II-XI intact bilaterally and not confused Cognition: normal cognition Speech: speech normal Gait: normal gait Motor: muscle tone normal throughout Course Vital Signs Temperature 36.7 C 04/17/19 13:02 Pulse 59 L 04/17/19 13:02 Respiratory Rate 16 04/17/19 13:02 Blood Pressure 157/78 H 04/17/19 13:02 Pulse Oximetry 98 04/17/19 13:02 Temperature 36.7 C 04/17/19 13:02 Temperature Source Skin 04/17/19 13:02 Pulse 59 L 04/17/19 13:02 Respiratory Rate 16 04/17/19 13:02 Respiratory Effort Non-Labored 04/17/19 13:02 Blood Pressure 157/78 H 04/17/19 13:02 Blood Pressure Position Sitting 04/17/19 13:02 Pulse Oximetry 98 04/17/19 13:02 Oxygen Delivery Method Room Air 04/17/19 13:02 Oxygen Flow Rate 0 04/17/19 13:02 Pain Level 8 04/17/19 13:02
--- NOTE | 2019-04-17 14:32 | ED.GENADUL_ITS ---
Discharge Plan Disposition Patient Disposition: HOME Condition: Improving Discharge Details Chief Complaint: Nk/Back Pain Clinical Impression: Left torticollis Primary Care Provider: Latosha,Local ED Provider: yTron Dejesus Home Meds and New Rx's Prescriptions: Continued nitroglycerin 0.4 mg Tablet, Sublingual 0.4 mg SUBLINGUAL Q5-15M PRNRF: 0 dofetilide 500 mcg Capsule 500 mcg PO Q12H RF: 0 Eliquis 5 mg Tablet 5 mg PO BID RF: 0 No Action tramadol 50 mg tablet 50 mg PO TID PRN (Reason: pain) Qty: 20 RF: 0 cyclobenzaprine 10 mg tablet 10 mg PO TID PRN (Reason: muscle spasm) Qty: 20 RF: 0 lidocaine 5 % adhesive patch,medicated 2 patch TP DAILY Qty: 30 RF: 0 diazepam [Valium] 5 mg tablet 5 mg PO Q8H PRN (Reason: muscle spasm) Qty: 4 RF: 0 Discharge Instructions Instructions: Spasmodic Torticollis (ED) Additional Instructions: Please take medication as prescribed and return to the emergency department for any new or significant worsening of symptoms. You may also use [id number] lidocaine patches as directed on packaging or capsaicin cream. Please use caution while on muscle relaxers as they can cause significant sedation and refrain from any alcohol while using these medications. Follow-up with your primary care provider as needed when you return home. Referrals: Primary Care Provider [Outside] Discharge Data Discharge Date/Time-TO BE ENTERED AT DEPARTURE: 04/17/19 14:35 Medical Decision Making Patient states that yesterday he was unpacking boxes and moving shelving when he started noticing some muscular pain on the left side of his neck. As the evening went on this pain worsened causing some radiation of the pain further up into the neck and down into his shoulder. When he awoke this morning he noted he could not turn his head side to side as much and when he did this it caused significant increase in pain.. Patient denies any neurological symptoms, chest pain shortness of breath or difficulty swallowing/sore throat. Physical exam shows normal cardiac sounds, normal respiratory exam, no carotid bruits, no tenderness to palpation of the anterior surface of the neck or vertebrae, patient does have soft tissue muscular spasm and tension to the left trapezius with radiation up into the neck and base of skull. Physical exam is otherwise unremarkable, no neurological deficits are noted. Feel this is more spasmodic torticollis given that it was exacerbated by activity and no other findings on exam. Patient given p.o. diazepam. Patient reassessed and started noting improvement of symptoms after approximately 40 minutes. Return precautions were discussed. Doubt carotid dissection, any cervical spinal abnormality. Patient was prescribed limited supply of diazepam along with Flexeril to use as needed. After discussion of diagnosis and plan of care patient has no further needs, questions, or concerns and states clear understanding to return to the emergency department for any worsening symptoms. HPI General Mode of arrival: ambulatory . Date/Time Provider Initiated Documentation: 04/17/19 12:55 . Limitations to Documentation: no limitations . Information obtained by: patient and RN notes reviewed . History of Present Illness 68 year old M presents to the emergency department with the chief complaint of Neck pain, described as moderate, with intensity rated at 8. Quality is described as aching and sharp, and is localized to the neck. Patient extremity (left shoulder). Patient started experiencing this day(s) (1) and it has been constant. No relieving factors improve symptom(s), Movement worsens symptoms . Patient notes no other symptoms.. Related Data Home Medications Medication Instructions Recorded Confirmed Eliquis 5 mg PO BID 04/10/19 04/18/19 dofetilide 500 mcg PO Q12H 04/10/19 04/18/19 nitroglycerin 0.4 mg SUBLINGUAL Q5-15M PRN 04/10/19 04/18/19 cyclobenzaprine 10 mg PO TID PRN #20 tab 04/19/19 diazepam [Valium] 5 mg PO Q8H PRN #4 tab 04/19/19 lidocaine 2 patch TP DAILY #30 each 04/19/19 tramadol 50 mg PO TID PRN #20 tab 04/19/19 Previous Rx's Medication Instructions Recorded cyclobenzaprine 10 mg PO TID PRN #20 tab 04/19/19 diazepam [Valium] 5 mg PO Q8H PRN #4 tab 04/19/19 lidocaine 2 patch TP DAILY #30 each 04/19/19 tramadol 50 mg PO TID PRN #20 tab 04/19/19 Allergies Allergy/AdvReac Type Severity Reaction Status Date / Time No Known Allergies Allergy Unverified 04/18/19 22:57 General Stated Complaint: Nk/Back Pain HU: 4 Review of Systems Constitutional Denies chills and Denies fever(s) ENT Reports neck pain Cardiovascular Denies chest pain and Denies dyspnea on exertion Respiratory Denies cough and Denies dyspnea on exertion Gastrointestinal Denies nausea Musculoskeletal Reports as per HPI, Denies back pain, Reports neck pain, Denies numbness, Reports stiffness (Left side neck ) and Denies tingling Neurologic Denies numbness, Denies sensory deficit and Denies tingling [facility] Social History Smoking/Tobacco Use Status: Never Alcohol Intake: current Alcohol Intake frequency: a few times a week Alcohol type: hard liquor Substance use type: does not use Do you feel safe at home: Yes Do you feel safe in your relationship?: Yes Exam Const General: cooperative and no acute distress Orientation: alert, awake and oriented x3 Neck Neck: normal visual inspection, full ROM and no meningeal signs Resp Effort & Inspection: normal respiratory effort Auscultation: clear to auscultation bilaterally Cardio Rate: regular rate Rhythm: regular rhythm Heart Sounds: S1 normal and S2 normal Bruits: no carotid bruits Pulses: radial pulses present GI Palpation: no hepatosplenomegaly, no aortic enlargement, no masses and no pulsatile masses Back/Spine/Pelvis Cervical Spine: cervical muscular tenderness (Left trapezius), cervical spasm (Left trapezius), cervical spinal tenderness (Mild but mostly soft tissue), No step off deformity and cervical ROM abnormal (Significant reduction rotation to left) Neuro General: alert, awake, oriented x3, gait normal, moves all extremities, no focal motor deficits, CN's II-XI intact bilaterally and not confused Cognition: normal cognition Speech: speech normal Gait: normal gait Motor: muscle tone normal throughout Course Vital Signs Temperature 36.7 C 04/17/19 13:02 Pulse 59 L 04/17/19 13:02 Respiratory Rate 16 04/17/19 13:02 Blood Pressure 157/78 H 04/17/19 13:02 Pulse Oximetry 98 04/17/19 13:02 Temperature 36.7 C 04/17/19 13:02 Temperature Source Skin 04/17/19 13:02 Pulse 59 L 04/17/19 13:02 Respiratory Rate 16 04/17/19 13:02 Respiratory Effort Non-Labored 04/17/19 13:02 Blood Pressure 157/78 H 04/17/19 13:02 Blood Pressure Position Sitting 04/17/19 13:02 Pulse Oximetry 98 04/17/19 13:02 Oxygen Delivery Method Room Air 04/17/19 13:02 Oxygen Flow Rate 0 04/17/19 13:02 Pain Level 8 04/17/19 13:02
== END 2019-04-17 14:35 | disposition home or self-care (01) ==
PROVIDERS: Emergency Provider Nurse Practitioner Family
DX: M43.6 Torticollis (principal); X50.3XXA Overexertion from repetitive movements, initial encounter
CPT/HCPCS: 99283

== ENCOUNTER 2019-04-18 22:41 | Emergency (ER) | payer OTHER, SELFPAY ==
--- NOTE | 2019-04-18 00:05 | DI.CT_ITS ---
SYMPTOM/DIAGNOSIS: NECK PAIN, TORTICOLLIS CERVICAL SPINE CT: CT examination of the cervical spine was performed utilizing multi slice acquisition and multi planar reconstruction. Images obtained through the lung apices are unremarkable. No cervical mass or adenopathy. Tracheal laryngeal structures appear intact. Skull base appears intact as visualized. Normally aerated mastoid air cells and unremarkable temporal bone structures. There are marked degenerative changes involving the cervical spine, particularly the facet joints. No evidence of acute fracture or dislocation. CONCLUSION: No evidence of acute fracture or dislocation.
--- NOTE | 2019-04-18 22:47 | W.ED.GENAD ---
Discharge Plan Disposition Patient Disposition: HOME Condition: Stable Discharge Details Chief Complaint: Headache Clinical Impression: Neck strain Primary Care Provider: Latosha,Local ED Provider: Papa Troncoso Home Meds and New Rx's Prescriptions: New tramadol 50 mg tablet 50 mg PO TID PRN (Reason: pain) Qty: 20 RF: 0 cyclobenzaprine 10 mg tablet 10 mg PO TID PRN (Reason: muscle spasm) Qty: 20 RF: 0 lidocaine 5 % adhesive patch,medicated 2 patch TP DAILY Qty: 30 RF: 0 Continued nitroglycerin 0.4 mg Tablet, Sublingual 0.4 mg SUBLINGUAL Q5-15M PRNRF: 0 dofetilide 500 mcg Capsule 500 mcg PO Q12H RF: 0 Eliquis 5 mg Tablet 5 mg PO BID RF: 0 diazepam [Valium] 5 mg tablet 5 mg PO Q8H PRN (Reason: muscle spasm) Qty: 4 RF: 0 Discontinued cyclobenzaprine 5 mg tablet 5 mg PO TID PRN (Reason: muscle spasm) Qty: 10 RF: 0 Discharge Instructions Instructions: Cervical Strain (ED) Additional Instructions: Do not take the valium, tramadol or flexeril within 3-4 hours of each other or drink alcohol if you take any of these medicines follow up with your primary care provider when you return to [place] if you develop high fevers, severe headaches or vision changes return to the emergency department Discharge Data Discharge Date/Time-TO BE ENTERED AT DEPARTURE: 04/19/19 00:45 Medical Decision Making <Papa Troncoso MD - Last Filed: 04/19/19 00:44> pt's labs show K of 3.1 otherwise no acute findings and ct also negative. He remains stable without neuro deficits and CN II=XII are intact. 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 No bruits to suspect dissection. Pt's pain reproducible on posterior neck and seems musculoskeletal. Will d/c and have him f/u with pcp when he returns to [place] on Friday, recommended PT. REturn precautions given Imaging Data Radiologic Study: Attestation: I personally reviewed and interpreted this imaging study as follows: Imaging: CT Scan Radiologist's impression: IMPRESSION: No acute findings. Moderate degenerative change Lab Data Lab results reviewed: Yes I reviewed the patient's lab results. ECG Data Attestation: I personally reviewed and interpreted this ECG (s) as follows: Prior ECG tracings: available for review Interpretation: sinus rhythm, rate of 64, pr 156, no acute st t wave ischemic changes compared to old ekg <MAILE Perez - Last Filed: 04/19/19 01:05> Patient is a 68-year-old male, accompanied by his , with chief complaint of neck pain. Patient was seen here yesterday endorsing neck stiffness and pain, was diagnosed with torticollis. Patient was prescribed Valium and Flexeril which she reports is been taking as prescribed without significant improvement in his symptoms today. Patient recently traveled here from [place], is staying at his second home. Was seen the week prior to concerns for palpitations. Patient has previous diagnosis of atrial fibrillation, is anticoagulated on Eliquis, and patient was admitted for observation. Patient did not have elevation in troponin or evidence of [place] and was discharged home. He denies any fevers or chills. No shortness of breath. No chest pain currently. Pain is more diffuse and when he was seen previously for his neck pain. On exam, he is notable spasm bilaterally, worse on the left than the right. No midline tenderness, step-off deformity. There is a loss of cervical lordosis. Patient is very stiff on exam with very minimal movement. Neurologic exam is intact. He appears nontoxic. No bruits noted. Patient I discussed differential list. I have low suspicion for ACS. Also considered meningitis or encephalitis the patient does not appear sick or toxic. Vital signs are reassuring. Also considered fracture to find this unlikely as he has not had any trauma. Rather, this pain came on after heavy lifting. Together most concerning for torticollis. However, as he is flying back home on Friday, we will obtain the labs and CT scan to evaluate for any other possible pathology. Discussed this plan with the patient his are in agreement. Patient did take Valium 4 hours ago, we will augment this with tramadol. Patient is currently unable to take anti-inflammatories or acetaminophen. At the end of my shift, care transitioned to Dr. Troncoso with CT and labs pending. HPI <Papa Troncoso MD - Last Filed: 04/19/19 00:44> General Date/Time Provider Initiated Documentation: 04/18/19 22:42. Related Data Home Medications Medication Instructions Recorded Confirmed Eliquis 5 mg PO BID 04/10/19 04/18/19 dofetilide 500 mcg PO Q12H 04/10/19 04/18/19 nitroglycerin 0.4 mg SUBLINGUAL Q5-15M PRN 04/10/19 04/18/19 cyclobenzaprine 10 mg PO TID PRN #20 tab 04/19/19 diazepam [Valium] 5 mg PO Q8H PRN #4 tab 04/19/19 lidocaine 2 patch TP DAILY #30 each 04/19/19 tramadol 50 mg PO TID PRN #20 tab 04/19/19 Previous Rx's Medication Instructions Recorded cyclobenzaprine 10 mg PO TID PRN #20 tab 04/19/19 diazepam [Valium] 5 mg PO Q8H PRN #4 tab 04/19/19 lidocaine 2 patch TP DAILY #30 each 04/19/19 tramadol 50 mg PO TID PRN #20 tab 04/19/19 Allergies Allergy/AdvReac Type Severity Reaction Status Date / Time No Known Allergies Allergy Unverified 04/18/19 22:57 <MAILE Perez - Last Filed: 04/19/19 01:05> General Mode of arrival: ambulatory. Limitations to Documentation: no limitations. Information obtained by: patient, family (accompanied by ) and RN notes reviewed. History of Present Illness 68 year old M presents to the emergency department with the chief complaint of neck pain, described as severe, with intensity rated at 8. Quality is described as aching, and is localized to the neck. Patient reports no radiation. Patient started experiencing this day(s) (2) and it has been constant. No relieving factors improve symptom(s), Movement worsens symptoms . Patient notes no other symptoms.; denies chest pain, cough, fever/chills, headaches, nausea/vomiting, rash, shortness of breath and weakness. Patient did receive the following treatments prior to arrival, other (valium) General HU: 4 <MAILE Perez - Last Filed: 04/19/19 01:05> Constitutional Reports as per HPI, Denies chills, Reports fatigue, Denies fever(s), Denies frequent falls, Denies headache(s) and Denies weakness Eyes Reports as per HPI, Denies blurry vision, Denies change in vision and Reports photophobia ENT Denies vertigo, Denies headache(s), Denies neck mass and Reports neck pain Cardiovascular Reports as per HPI, Denies chest pain, Denies lightheadedness, Denies radiating jaw, neck or arm pain, Denies dyspnea and Denies dyspnea on exertion Respiratory Reports as per HPI, Denies chest congestion, Denies cough, Denies dyspnea, Denies dyspnea on exertion, Denies stridor and Denies wheezing Gastrointestinal Reports as per HPI, Denies abdominal pain, Denies change in bowel habits, Denies nausea and Denies vomiting Genitourinary Reports system reviewed and no additional complaints, except as docu (denies change in urinary habits) Musculoskeletal Reports as per HPI, Denies back pain, Denies myalgias, Denies muscle cramps, Reports neck pain and Denies numbness Integumentary/Breasts Reports as per HPI and Denies rash Neurologic Reports as per HPI, Denies abnormal movements, Denies abnormal speech, Denies behavioral changes, Denies confusion, Denies vertigo, Denies frequent falls, Denies headache(s), Denies focal weakness, Denies numbness, Denies sensory deficit and Denies weakness Psychiatric Denies behavioral changes and Denies confusion Endocrine Reports fatigue Allergic/Immunologic Denies wheezing PFSH <Papa Troncoso MD - Last Filed: 04/19/19 00:44> Medical History Arthritis (Acute) BiPAP (biphasic positive airway pressure) dependence (Acute) Carpal tunnel syndrome on both sides (Acute) Sleep apnea (Acute) Coronary artery disease (Chronic) Surgical History Total knee replacement status (Acute) History of coronary artery stent placement (Chronic) Social History Smoking/Tobacco Use Status: Never Alcohol Intake: current Alcohol Intake frequency: a few times a week Alcohol type: hard liquor Substance use type: does not use Do you feel safe at home: Yes Do you feel safe in your relationship?: Yes <MAILE Perez - Last Filed: 04/19/19 01:05> Const General: cooperative, healthy appearing, uncomfortable (patient appears stiff), no acute distress, well developed and well groomed Nutritional Appearance: well nourished and overweight Orientation: alert, awake and oriented x3 [facility] Head: normal to inspection, no palpable skull fracture, normocephalic and atraumatic Ears: hearing grossly normal bilaterally General nose exam: external nose normal Mouth: oral mucosae normal and moist mucous membranes Eyes General: appearance normal, both eyes and all related structures Alignment and Position: alignment normal Periorbital: periorbital findings normal Eyelids: eyelids normal Sclera: sclerae normal Cornea: corneas normal Pupils: PERRL EOM: EOM intact bilaterally Neck Neck: normal visual inspection, limited ROM (very limited), no lymphadenopathy and no meningeal signs Thyroid: thyroid normal Carotids: normal carotid upstroke and no bruits Resp Effort & Inspection: normal respiratory effort, able to speak in complete sentences and no respiratory distress Auscultation: clear to auscultation bilaterally, no rales, no rhonchi and no wheezes Cardio Rate: regular rate Rhythm: regular rhythm Heart Sounds: S1 normal and S2 normal GI Inspection: normal to inspection and non-distended Palpation: soft, no hepatosplenomegaly, not firm, no guarding, not rigid and nontender Percussion: normal to percussion Auscultation: normal bowel sounds Back/Spine/Pelvis Cervical Spine: No cervical ROM normal, cervical muscular tenderness, pain with cervical ROM, cervical spasm (bilaterally, L>R), No cervical spinal tenderness (no midline tenderness), No step off deformity and cervical ROM abnormal (very limited ROM in all directions) Thoracic/Lumbar Spine: thoracic and lumbar spine normal to inspection Skin General skin exam: no rashes or lesions noted Neuro General: alert, awake and oriented x3 Cranial Nerves: CN's II-XI intact bilaterally Cognition: normal cognition Speech: speech normal Gait: normal gait Motor: muscle tone normal throughout, strength 5/5 throughout, no pronator drift, no movement abnormalities noted and no fasciculations Sensory Exam: no sensory deficits noted DTR's: Rt Biceps: 2+, Lt Biceps: 2+, Rt Brachioradialis: 2+, Lt Brachioradialis: 2+, Rt Patellar: 2+ and Lt Patellar: 2+ Coordination: [id number] test normal and [id number] test normal Extrem General: normal to inspection, normal capillary refill, no pedal edema and no calf tenderness Psych Appearance: grossly normal and well kempt Mental Status: mental status grossly normal Speech and Movement: speech and movement normal Sign Out <Papa Troncoso MD - Last Filed: 04/19/19 00:44> Sign Out Data: Sign Out Comment: Care transitioned to Dr. Troncoso with CT and labs pending Last updated by Jaquelin Payan PA at 04/19/19 00:11
[2019-04-18 22:53] VITALS: BP 154/89; PULSE 67; RESP 19; TEMP 36.8; O2SAT 96
--- NOTE | 2019-04-18 23:11 | ED.GENADUL_ITS ---
Discharge Plan Disposition Patient Disposition: HOME Condition: Stable Discharge Details Chief Complaint: Headache Clinical Impression: Neck strain Primary Care Provider: Latosha,Local ED Provider: Papa Troncoso Home Meds and New Rx's Prescriptions: New tramadol 50 mg tablet 50 mg PO TID PRN (Reason: pain) Qty: 20 RF: 0 cyclobenzaprine 10 mg tablet 10 mg PO TID PRN (Reason: muscle spasm) Qty: 20 RF: 0 lidocaine 5 % adhesive patch,medicated 2 patch TP DAILY Qty: 30 RF: 0 Continued nitroglycerin 0.4 mg Tablet, Sublingual 0.4 mg SUBLINGUAL Q5-15M PRNRF: 0 dofetilide 500 mcg Capsule 500 mcg PO Q12H RF: 0 Eliquis 5 mg Tablet 5 mg PO BID RF: 0 diazepam [Valium] 5 mg tablet 5 mg PO Q8H PRN (Reason: muscle spasm) Qty: 4 RF: 0 Discontinued cyclobenzaprine 5 mg tablet 5 mg PO TID PRN (Reason: muscle spasm) Qty: 10 RF: 0 Discharge Instructions Instructions: Cervical Strain (ED) Additional Instructions: Do not take the valium, tramadol or flexeril within 3-4 hours of each other or drink alcohol if you take any of these medicines follow up with your primary care provider when you return to [place] if you develop high fevers, severe headaches or vision changes return to the emergency department Discharge Data Discharge Date/Time-TO BE ENTERED AT DEPARTURE: 04/19/19 00:45 Medical Decision Making <Papa Troncoso MD - Last Filed: 04/19/19 00:44> pt's labs show K of 3.1 otherwise no acute findings and ct also negative. He remains stable without neuro deficits and CN II=XII are intact. 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 No bruits to suspect dissection. Pt's pain reproducible on posterior neck and seems musculoskeletal. Will d/c and have him f/u with pcp when he returns to [place] on Friday, recommended PT. REturn precautions given Imaging Data Radiologic Study: Attestation: I personally reviewed and interpreted this imaging study as follows: Imaging: CT Scan Radiologist's impression: IMPRESSION: No acute findings. Moderate degenerative change Lab Data Lab results reviewed: Yes I reviewed the patient's lab results. ECG Data Attestation: I personally reviewed and interpreted this ECG (s) as follows: Prior ECG tracings: available for review Interpretation: sinus rhythm, rate of 64, pr 156, no acute st t wave ischemic changes compared to old ekg <MAILE Perez - Last Filed: 04/19/19 01:05> Patient is a 68-year-old male, accompanied by his , with chief complaint of neck pain. Patient was seen here yesterday endorsing neck stiffness and pain, was diagnosed with torticollis. Patient was prescribed Valium and Flexeril which she reports is been taking as prescribed without significant improvement in his symptoms today. Patient recently traveled here from [place], is staying at his second home. Was seen the week prior to concerns for palpitations. Patient has previous diagnosis of atrial fibrillation, is anticoagulated on Eliquis, and patient was admitted for observation. Patient did not have elevation in troponin or evidence of [place] and was discharged home. He denies any fevers or chills. No shortness of breath. No chest pain currently. Pain is more diffuse and when he was seen previously for his neck pain. On exam, he is notable spasm bilaterally, worse on the left than the right. No midline tenderness, step-off deformity. There is a loss of cervical lordosis. Patient is very stiff on exam with very minimal movement. Neurologic exam is intact. He appears nontoxic. No bruits noted. Patient I discussed differential list. I have low suspicion for ACS. Also considered meningitis or encephalitis the patient does not appear sick or toxic. Vital signs are reassuring. Also considered fracture to find this unlikely as he has not had any trauma. Rather, this pain came on after heavy lifting. Together most concerning for torticollis. However, as he is flying back home on Friday, we will obtain the labs and CT scan to evaluate for any other possible pathology. Discussed this plan with the patient his are in agreement. Patient did take Valium 4 hours ago, we will augment this with tramadol. Patient is currently unable to take anti-inflammatories or acetaminophen. At the end of my shift, care transitioned to Dr. Troncoso with CT and labs pending. HPI <Papa Troncoso MD - Last Filed: 04/19/19 00:44> General Date/Time Provider Initiated Documentation: 04/18/19 22:42 . Related Data Home Medications Medication Instructions Recorded Confirmed Eliquis 5 mg PO BID 04/10/19 04/18/19 dofetilide 500 mcg PO Q12H 04/10/19 04/18/19 nitroglycerin 0.4 mg SUBLINGUAL Q5-15M PRN 04/10/19 04/18/19 cyclobenzaprine 10 mg PO TID PRN #20 tab 04/19/19 diazepam [Valium] 5 mg PO Q8H PRN #4 tab 04/19/19 lidocaine 2 patch TP DAILY #30 each 04/19/19 tramadol 50 mg PO TID PRN #20 tab 04/19/19 Previous Rx's Medication Instructions Recorded cyclobenzaprine 10 mg PO TID PRN #20 tab 04/19/19 diazepam [Valium] 5 mg PO Q8H PRN #4 tab 04/19/19 lidocaine 2 patch TP DAILY #30 each 04/19/19 tramadol 50 mg PO TID PRN #20 tab 04/19/19 Allergies Allergy/AdvReac Type Severity Reaction Status Date / Time No Known Allergies Allergy Unverified 04/18/19 22:57 <MAILE Perez - Last Filed: 04/19/19 01:05> General Mode of arrival: ambulatory . Limitations to Documentation: no limitations . Information obtained by: patient, family (accompanied by ) and RN notes reviewed . History of Present Illness 68 year old M presents to the emergency department with the chief complaint of neck pain, described as severe, with intensity rated at 8. Quality is described as aching, and is localized to the neck. Patient reports no radiation. Patient started experiencing this day(s) (2) and it has been constant. No relieving factors improve symptom(s), Movement worsens symptoms . Patient notes no other symptoms.; denies chest pain, cough, fever/chills, headaches, nausea/vomiting, rash, shortness of breath and weakness. Patient did receive the following treatments prior to arrival, other (valium) General HU: 4 <MAILE Perez - Last Filed: 04/19/19 01:05> Constitutional Reports as per HPI, Denies chills, Reports fatigue, Denies fever(s), Denies frequent falls, Denies headache(s) and Denies weakness Eyes Reports as per HPI, Denies blurry vision, Denies change in vision and Reports photophobia ENT Denies vertigo, Denies headache(s), Denies neck mass and Reports neck pain Cardiovascular Reports as per HPI, Denies chest pain, Denies lightheadedness, Denies radiating jaw, neck or arm pain, Denies dyspnea and Denies dyspnea on exertion Respiratory Reports as per HPI, Denies chest congestion, Denies cough, Denies dyspnea, Denies dyspnea on exertion, Denies stridor and Denies wheezing Gastrointestinal Reports as per HPI, Denies abdominal pain, Denies change in bowel habits, Denies nausea and Denies vomiting Genitourinary Reports system reviewed and no additional complaints, except as docu (denies change in urinary habits) Musculoskeletal Reports as per HPI, Denies back pain, Denies myalgias, Denies muscle cramps, Reports neck pain and Denies numbness Integumentary/Breasts Reports as per HPI and Denies rash Neurologic Reports as per HPI, Denies abnormal movements, Denies abnormal speech, Denies behavioral changes, Denies confusion, Denies vertigo, Denies frequent falls, Denies headache(s), Denies focal weakness, Denies numbness, Denies sensory deficit and Denies weakness Psychiatric Denies behavioral changes and Denies confusion Endocrine Reports fatigue Allergic/Immunologic Denies wheezing PFSH <Papa Troncoso MD - Last Filed: 04/19/19 00:44> Medical History Arthritis (Acute) BiPAP (biphasic positive airway pressure) dependence (Acute) Carpal tunnel syndrome on both sides (Acute) Sleep apnea (Acute) Coronary artery disease (Chronic) Surgical History Total knee replacement status (Acute) History of coronary artery stent placement (Chronic) Social History Smoking/Tobacco Use Status: Never Alcohol Intake: current Alcohol Intake frequency: a few times a week Alcohol type: hard liquor Substance use type: does not use Do you feel safe at home: Yes Do you feel safe in your relationship?: Yes <MAILE Perez - Last Filed: 04/19/19 01:05> Const General: cooperative, healthy appearing, uncomfortable (patient appears stiff), no acute distress, well developed and well groomed Nutritional Appearance: well nourished and overweight Orientation: alert, awake and oriented x3 [facility] Head: normal to inspection, no palpable skull fracture, normocephalic and atraumatic Ears: hearing grossly normal bilaterally General nose exam: external nose normal Mouth: oral mucosae normal and moist mucous membranes Eyes General: appearance normal, both eyes and all related structures Alignment and Position: alignment normal Periorbital: periorbital findings normal Eyelids: eyelids normal Sclera: sclerae normal Cornea: corneas normal Pupils: PERRL EOM: EOM intact bilaterally Neck Neck: normal visual inspection, limited ROM (very limited), no lymphadenopathy and no meningeal signs Thyroid: thyroid normal Carotids: normal carotid upstroke and no bruits Resp Effort & Inspection: normal respiratory effort, able to speak in complete sentences and no respiratory distress Auscultation: clear to auscultation bilaterally, no rales, no rhonchi and no wheezes Cardio Rate: regular rate Rhythm: regular rhythm Heart Sounds: S1 normal and S2 normal GI Inspection: normal to inspection and non-distended Palpation: soft, no hepatosplenomegaly, not firm, no guarding, not rigid and nontender Percussion: normal to percussion Auscultation: normal bowel sounds Back/Spine/Pelvis Cervical Spine: No cervical ROM normal, cervical muscular tenderness, pain with cervical ROM, cervical spasm (bilaterally, L>R), No cervical spinal tenderness (no midline tenderness), No step off deformity and cervical ROM abnormal (very limited ROM in all directions) Thoracic/Lumbar Spine: thoracic and lumbar spine normal to inspection Skin General skin exam: no rashes or lesions noted Neuro General: alert, awake and oriented x3 Cranial Nerves: CN's II-XI intact bilaterally Cognition: normal cognition Speech: speech normal Gait: normal gait Motor: muscle tone normal throughout, strength 5/5 throughout, no pronator drift, no movement abnormalities noted and no fasciculations Sensory Exam: no sensory deficits noted DTR's: Rt Biceps: 2+, Lt Biceps: 2+, Rt Brachioradialis: 2+, Lt Brachioradialis: 2+, Rt Patellar: 2+ and Lt Patellar: 2+ Coordination: [id number] test normal and [id number] test normal Extrem General: normal to inspection, normal capillary refill, no pedal edema and no calf tenderness Psych Appearance: grossly normal and well kempt Mental Status: mental status grossly normal Speech and Movement: speech and movement normal Sign Out <Papa Troncoso MD - Last Filed: 04/19/19 00:44> Sign Out Data: Sign Out Comment: Care transitioned to Dr. Troncoso with CT and labs pending Last updated by Jaquelin Payan PA at 04/19/19 00:11
[2019-04-18 23:57] LABS: Abs Immature Grans 0.01 k/cumm (0.0-0.09); Absolute Basophil Count 0.04 k/cumm (0.0-0.2); Absolute Eosinophil Count 0.12 k/cumm (0.0-0.7); Absolute Lymphocyte Count 1.47 k/cumm (1.2-3.4); Absolute Neutrophil Count 4.95 k/cumm (1.2-6.7); Basophils % 0.5; Eosinophils % 1.6; HCT 38.7 % (40.0-50.0); HGB 13.2 g/dL (13.5-17.5); Immature Grans % 0.1; Lymphocytes % 19.4; Mean Corp. HGB Concentration 34.1 g/dL (32.0-36.0); Mean Corpuscular Hemoglobin 34.6 pg (27.0-33.0); Mean Corpuscular Volume 101.6 fL (80-95); Mean Platelet Volume 10.9 fL (8.0-11.0); Monocytes % 13.2; Neutrophils % 65.2; Platelet Count 179 x1000/uL (130-400); RBC 3.81 m/cumm (4.50-6.00); RBC Distribution Width 12.9 % (11.8-14.1); White Blood Cell Count 7.59 k/cumm (4.4-10.8)
[2019-04-19] MEDS: traMADol 50 MG TAB PO (00:07)
[2019-04-19] MEDS: Lidocaine 5% Patch 2 PATCH TP (00:08)
[2019-04-19 00:11] LABS: ALT 36 U/L (12-78); AST 26 U/L (15-37); Alkaline Phosphatase 65 U/L (46-116); BUN 20 mg/dL (7-18); Bilirubin, Total 0.5 mg/dL (0.2-1.0); CREATININE 0.83 mg/dL (0.70-1.30); Calcium 8.7 mg/dL (8.5-10.1); Chloride 103 mmol/L (98-107); Glucose 126 mg/dL (70-100); Magnesium 1.8 mg/dL (1.8-2.4); Potassium 3.1 mmol/L (3.5-5.1); Sodium 136 mmol/L (136-145); Total Protein 7.1 g/dL (6.4-8.2); Troponin I < 0.02 ng/mL (0.00-0.06)
--- NOTE | 2019-04-19 00:20 | DI.VRAD_ITS ---
EXAM: CT Cervical Spine Without Contrast EXAM DATE/TIME: 04/18/2019 11:41 PM CLINICAL HISTORY: 68 years old, male; Patient HX: Head and neck pain, torticolis TECHNIQUE: Imaging protocol: Axial computed tomography images of the cervical spine without contrast. Coronal and sagittal reformatted images were created and reviewed. Radiation optimization: All CT scans at this facility use at least one of these dose optimization techniques: automated exposure control; mA and/or kV adjustment per patient size (includes targeted exams where dose is matched to clinical indication); or iterative reconstruction. COMPARISON: No relevant prior studies available. FINDINGS: Vertebrae: No acute fracture. Normal alignment. Vertebral body heights preserved. Discs/Spinal canal/Neural foramina: Typical for age. Soft tissues: Unremarkable. Lungs: Lung apices are unremarkable as visualized. IMPRESSION: No acute findings. Moderate degenerative change. Dictated and Authenticated by: Jacob Oneal MD. Ordering:HANNAH Hammer MD
[2019-04-19 00:32] VITALS: BP 153/87; PULSE 58; RESP 20; O2SAT 97
== END 2019-04-19 00:45 | disposition home or self-care (01) ==
PROVIDERS: Physician Assistant; Emergency Provider Emergency Medicine
DX: S16.1XXA Strain of muscle, fascia and tendon at neck level, initial encounter (principal); X58.XXXA Exposure to other specified factors, initial encounter
CPT/HCPCS: 36415; 80053; 99284; 72125; 83735; 84484; 85025

== ENCOUNTER 2020-07-04 07:29 | Outpatient (CLI) | payer OTHER, SELFPAY ==
[2020-07-07 01:49] LABS: SARS-CoV-2 RNA Undetected (Undetected)
== END 2020-07-04 07:49 ==
PROVIDERS: PCP Internal Medicine; Visit Provider Internal Medicine
DX: Z11.59 Encounter for screening for other viral diseases (principal)
CPT/HCPCS: U0003